=== PATIENT | female | born 1990 | race Caucasian/White ===

== ENCOUNTER 2019-04-08 02:59 | Emergency (ER) | payer OTHER ==
[~2019-04-08] VITALS: Ht 157.5 cm; Wt 86.2 kg
[2019-04-08] MEDS ORDERED: Aviane1 EACH PO (03:16)
[2019-04-08] MEDS ORDERED: BUSP5 PO (03:16)
[2019-04-08] MEDS ORDERED: ESCI10 PO (03:16)
[2019-04-08] MEDS ORDERED: Prednisone20 MG PO (04:11)
== END 2019-04-08 04:30 | disposition home or self-care (01) ==
LOC: ER 02:59
DX: M46.1 Sacroiliitis, not elsewhere classified (principal); Z79.899 Other long term (current) drug therapy
CPT/HCPCS: 96372; 99283-25; J1885; J7512